=== PATIENT | male | born 2000 | race Caucasian/White ===

== ENCOUNTER 2023-11-29 12:14 | Emergency (ER) | payer BC ==
[2023-11-29] MEDS ORDERED: Ibuprofen 200 MG TAB ONE (13:50)
[2023-11-29] MEDS ORDERED: oxyCODONE 5 MG TAB ONE (16:31)
[2023-11-29] MEDS ORDERED: Acetaminophen 325 MG TAB ONE (16:31)
== END 2023-11-29 17:30 | disposition home or self-care (01) ==
LOC: CSHERS 12:14
DX: S42.032A Displaced fracture of lateral end of left clavicle, initial encounter for closed fracture (principal); V29.99XA Rider (driver) (passenger) of other motorcycle injured in unspecified traffic accident, initial encounter
CPT/HCPCS: 71045; 72125; 72128; 72131; 74177